=== PATIENT | female | born 1960 | race Caucasian/White ===

== ENCOUNTER 2019-05-23 09:01 | Outpatient (CLI) | payer MEDICARE, MEDICAID, SELFPAY | END 2019-05-23 09:02 | disposition home or self-care (01) | PROVIDERS: PCP Family Medicine; Visit Provider Audiologist | DX: H93.19 Tinnitus, unspecified ear (principal) | CPT/HCPCS: 92557; 92567 ==

== ENCOUNTER 2019-06-27 08:49 | Outpatient (RCR) | payer MEDICARE, MEDICAID, SELFPAY | END 2019-09-25 23:59 | disposition home or self-care (01) | LOC: CHSAUDIO 08:49 | PROVIDERS: PCP Family Medicine; Visit Provider Audiologist | DX: H93.19 Tinnitus, unspecified ear (principal) | CPT/HCPCS: V5160; V5261 ==

== ENCOUNTER 2020-04-11 10:21 | Outpatient (CLI) | payer MEDICARE, MEDICAID, SELFPAY ==
--- NOTE | ~2020-04-11 | DEXA_ITS ---
Bone Density Report Name: Gladis Palomo Age: 60 Sex: Female Ethnicity: White Date of : 1960 Indication: postmenopausal; screening for osteoporosis; parental hip fracture; rheumatoid arthritis; Referring Provider: Jenny, Wade Richmond Study: Bone densitometry was performed. Exam Date: April 11, 2020 Accession number: [id number] Bone Density: Region BMD T-score Z-score Classification AP Spine(L2, L3, L4) 0.883 -1.8 -0.5 Osteopenia Femoral Neck (Left) 0.686 -1.5 -0.3 Osteopenia Total Hip (Left) 0.840 -0.8 0.0 Normal Femoral Neck (Right) 0.691 -1.4 -0.2 Osteopenia Total Hip (Right) 0.815 -1.0 -0.2 Normal Femoral Neck Mean 0.688 -1.4 -0.3 Osteopenia Total Hip Mean 0.828 -0.9 -0.1 Normal World Health Organization criteria for BMD impression classify patients as: Normal (T-score at or above -1.0), Osteopenia (T-score between -1.0 and -2.5), or Osteoporosis (T-score at or below -2.5). 10-year Fracture Risk(1): Major Osteoporotic Fracture 16% Hip Fracture 1.2% Reported Risk Factors: [place] (), Neck BMD=0.686, BMI=38.1, parental fracture, smoking, rheumatoid arthritis (1) FRAX(R) Version 3.08. Fracture probability calculated for an untreated patient. Fracture probability may be lower if the patient has received treatment. Previous Exams: Region Exam Age BMD T-score BMD Change BMD Change Date g/cm2 vs Baseline vs Previous AP Spine (L2-L4) 04/11/2020 60 0.883 -1.8 -0.108 (-10.9% -0.108 (-10.9% 05/02/2015 55 0.991 -0.8 Total Hip(Left) 04/11/2020 60 0.840 -0.8 -0.044 (-5.0%) -0.044 (-5.0%) 05/02/2015 55 0.884 -0.5 *Denotes significance at 95% confidence level, LSC for AP Spine = 0.022 g/cm2, LSC for Total Hip = 0.027 g/cm2 # Denotes dissimilar scan types or analysis methods Clinical Information Provided by Patient: Parent has had a hip fracture Smokes Has rheumatoid arthritis Has used the following medications: Vitamin D Patient maximum height was 56 No regular weight bearing exercise Does not regularly consume dairy products Onset of menses at age 12 Number of children 1 Impression: The patient has low bone mass, based on the Total Spine T-score. The patient has risk factors, including: parental hip fracture, smoking. No significant bone loss was observed. Discussion: BONE DENSITY IS LOW AT ONE OR MORE SKELETAL SITES. This patient's lowest T-score is low at one or more skeletal sites. It meets the World Health Organiz
--- NOTE | ~2020-04-11 | CT_ITS ---
EXAMINATION: CT lung screening DATE: 04/11/2020 10:56 INDICATION: Lung cancer screening. History of tobacco dependence. TECHNIQUE: Computed tomography (CT) of the chest was performed without intravenous contrast. The dose -length product was 144.59 mGy-cm. Automated exposure control and iterative reconstruction technique were employed. COMPARISON: Chest dated 04/01/2015 FINDINGS: Heart size normal. No significant pleural or pericardial effusion. There is atherosclerosis . No evidence for aneurysm. No thoracic lymphadenopathy. There is a 1.5 cm left adrenal adenoma. Ther e is left upper lobe atelectasis/scarring medially. There is a 3.5 mm left upper lobe nodule, image 5 5. There is right middle lobe atelectasis/scarring. No endobronchial lesions. There is a 2 mm left lo wer lobe nodule, image 62. No pneumothorax. There is a superior endplate compression fracture of T11 and T2, likely chronic. IMPRESSION: 1. Lung-RADS category 2: Benign appearance or behavior. Continue annual screening with noncontrast lo w-dose chest CT in 12 months. Reviewed, dictated and finalized at location A. [facility]ING [employer]TER IMPRESSION: 1. Lung-RADS category 2: Benign appearance or behavior. Continue annual screeni ng with noncontrast low-dose chest CT in 12 months.
== END 2020-04-11 10:22 | disposition home or self-care (01) ==
LOC: CHSIMG 10:24
PROVIDERS: PCP Family Medicine; Visit Provider Family Medicine
DX: Z12.2 Encounter for screening for malignant neoplasm of respiratory organs (principal); Z87.891 Personal history of nicotine dependence; Z78.0 Asymptomatic menopausal state
CPT/HCPCS: 77080; G0297

== ENCOUNTER 2020-09-05 12:54 | Outpatient (CLI) | payer MEDICARE, MEDICAID, SELFPAY ==
--- NOTE | ~2020-09-05 | MM_ITS ---
EXAMINATION: MM screening [facility] BI w demetrice HISTORY: Screening mammogram TECHNIQUE: Craniocaudal and mediolateral oblique 3-D tomosynthesis images were obtained and synthetic 2-D images were generated. CAD analysis was submitted and interpreted. COMPARISON: 04/11/2019, 05/31/2017, 03/06/2015 BREAST PARENCHYMAL COMPOSITION: The breasts are almost entirely fatty. FINDINGS: A small mass in the subareolar aspect of the left breast demonstrates decrease in size, con sistent with a benign finding. There is no evidence of suspicious mass, calcification, or architectur al distortion to suggest malignancy in either breast. There has been no suspicious interval change. IMPRESSION: 1. No mammographic evidence of malignancy. 2. Recommend routine screening mammography in one year. BI-RADS Category 2: Benign finding(s). Reviewed, dictated and finalized at location A.
== END 2020-09-05 12:55 | disposition home or self-care (01) ==
LOC: CHSIMG 12:56
PROVIDERS: PCP Family Medicine; Visit Provider Family Medicine
DX: Z12.31 Encounter for screening mammogram for malignant neoplasm of breast (principal)
CPT/HCPCS: 77063; 77067

== ENCOUNTER → 2020-09-20 03:41 | Outpatient (CLI) | payer MEDICARE, MEDICAID, SELFPAY ==
[2020-09-20 19:46] LABS: SARS-CoV-2 RNA PCR Negative
== END ==
PROVIDERS: PCP Family Medicine; Visit Provider Internal Medicine Gastroenterology
DX: Z01.812 Encounter for preprocedural laboratory examination (principal); Z20.822 Contact with and (suspected) exposure to COVID-19
CPT/HCPCS: C9803; U0003; U0005

== ENCOUNTER 2020-09-23 01:32 | Day surgery (SDC) | payer MEDICARE, MEDICAID, SELFPAY ==
[2020-09-10 14:49] VITALS: BMI 28.8
[2020-09-23 09:01] VITALS: BP 123/75; PULSE 109; RESP 19; TEMP 35.5; O2SAT 97; BMI 28.5
[2020-09-23] MEDS: LACTATED RINGERS 1,000 ML 150 ML IV CONT (09:14)
--- NOTE | 2020-09-23 09:46 | WPDANESEPPF ---
Anes - Initial Pre Proc Eval Procedure: Operation Date: 09/23/20 10:15 Proposed Procedures p Esophagogastroduodenoscopy & Colonoscopy - Marvin Bolden MD Date/Time: 09/23/20 09:46 Surgeon: Marvin Bolden MD Pre Op Diagnosis: Weight loss, diarrhea Patient Data Age: 60 Gender: F Height: 5 ft 6 in Weight: 80.4 kg Last Vital Signs Temp 96 F L 09/23/20 09:01 Pulse 109 H 09/23/20 09:01 Resp 19 09/23/20 09:01 BP 123/75 09/23/20 09:01 Pulse Ox 97 09/23/20 09:01 Allergies Allergy/AdvReac Type Severity Reaction Status Date / Time cyclacillin Allergy Severe sick Verified 09/23/20 09:00 amoxicillin Allergy Intermediate Nausea and Verified 09/23/20 09:00 Vomiting NSAIDS (Non-Steroidal Allergy Intermediate Nausea and Verified 09/23/20 09:00 Anti-Inflamma Vomiting Tetracyclines Allergy Intermediate Nausea and Verified 09/23/20 09:00 Vomiting Home Medications Medication Instructions Recorded Confirmed Type metoprolol tartrate 25 mg tablet 25 mg PO QPM 07/10/19 09/23/20 History lovastatin 20 mg tablet 20 mg PO QPM 12/05/19 09/23/20 History quetiapine 400 mg tablet 400 mg PO QPM PRN 12/05/19 09/23/20 History venlafaxine 37.5 mg 37.5 mg PO DAILY 12/05/19 09/23/20 History capsule,extended release 24 hr cholecalciferol (vitamin D3) 2,000 unit PO DAILY 09/10/20 09/23/20 History [Vitamin D3] dexlansoprazole [Dexilant] 60 mg PO PRN PRN 09/10/20 09/23/20 History thiamine HCl (vitamin B1) [Vitamin 100 mg PO QPM 09/10/20 09/23/20 History B-1] zolpidem 5 - 10 mg PO HS PRN 09/10/20 09/23/20 History Patient hx anesthesia problems: none Family hx anesthesia problems: none PMFSH Past Medical History Medical History (Updated 12/05/19 @ 09:52 by Laura Cordova) Diarrhea GERD (gastroesophageal reflux disease) Lack of appetite Nausea Weight loss Social History Social History Years smoked: 44 Smoking status: Former smoker Tobacco type: cigarettes Alcohol intake: former Substance use: current Substance use type: marijuana Living arrangements: with family Spiritual care concerns: No Anes - Eval Final PreProcedure Day of Procedure 09/23/20 09:46 Patient weight: obese Heart: regular rate and rhythm Lungs: clear to auscultation Airway: Mallampati scale class II Neurological: alert and oriented Last oral intake: >/= 8 hours ASA classification: III Emergent: no Anesthetic plan: proceed Anesthesia type and monitoring: general GIVS and standard monitoring Informed Consent: The patient's anesthetic plan and its attendant risks and benefits were discussed with the patient/family/POA. Questions were solicited and answers provided to the satisfaction of the patient/family/POA.
--- NOTE | 2020-09-23 09:58 | PM.HPGS ---
History of Present Illness History of Present Illness Consent: Risks, benefits, and alternatives have been discussed and questions answered. Patient agrees to proceed with procedure. Chief complaint: Weight loss, diarrhea Narrative: Gladis Palomo is a 60 year old female with regurgitation, loose stools and nausea. Last colonoscopy 5 years ago. She also claims that has seen parasites in urine, stool and skin Review of Systems Constitutional: Constitutional: Denies headache(s) and Denies weakness Eyes: Eyes: Denies blurry vision ENT: Reports Normal hearing present, Denies headache(s) and Denies neck pain Cardiovascular: Cardiovascular: Denies chest pain and Denies dyspnea Respiratory: Respiratory: Denies dyspnea Gastrointestinal: Gastrointestinal: Reports no additional gastrointestinal complaints Genitourinary: Genitourinary: Denies dysuria Musculoskeletal: Musculoskeletal: Denies neck pain Integumentary/Breasts: Skin/Breast: Denies dry skin Neurologic: Reports Normal hearing present, Denies headache(s) and Denies weakness Psychiatric: Psychiatric: Denies anxiety Endocrine: Endocrine: Denies change in body appearance Hematologic/Lymphatic: Hematologic/Lymphatic: Denies easy bleeding Allergic/Immunologic: Allergic/Immunologic: Denies urticaria [facility] Past Medical History Medical History (Updated 12/05/19 @ 09:52 by Laura Cordova) Diarrhea GERD (gastroesophageal reflux disease) Lack of appetite Nausea Weight loss Social History Social History Years smoked: 44 Smoking status: Former smoker Tobacco type: cigarettes Alcohol intake: former Substance use: current Substance use type: marijuana Living arrangements: with family Spiritual care concerns: No Meds Home Medications and Allergies Home Medications Medication Instructions Recorded Confirmed Type metoprolol tartrate 25 mg tablet 25 mg PO QPM 07/10/19 09/23/20 History lovastatin 20 mg tablet 20 mg PO QPM 12/05/19 09/23/20 History quetiapine 400 mg tablet 400 mg PO QPM PRN 12/05/19 09/23/20 History venlafaxine 37.5 mg 37.5 mg PO DAILY 12/05/19 09/23/20 History capsule,extended release 24 hr cholecalciferol (vitamin D3) 2,000 unit PO DAILY 09/10/20 09/23/20 History [Vitamin D3] dexlansoprazole [Dexilant] 60 mg PO PRN PRN 09/10/20 09/23/20 History thiamine HCl (vitamin B1) [Vitamin 100 mg PO QPM 09/10/20 09/23/20 History B-1] zolpidem 5 - 10 mg PO HS PRN 09/10/20 09/23/20 History Allergies Allergy/AdvReac Type Severity Reaction Status Date / Time cyclacillin Allergy Severe sick Verified 09/23/20 09:00 amoxicillin Allergy Intermediate Nausea and Verified 09/23/20 09:00 Vomiting NSAIDS (Non-Steroidal Allergy Intermediate Nausea and Verified 09/23/20 09:00 Anti-Inflamma Vomiting Tetracyclines Allergy Intermediate Nausea and Verified 09/23/20 09:00 Vomiting Vital Signs Vital Signs - 24 hr 09/23/20 09:01 Temperature 96 F L Pulse Rate 109 H Respiratory Rate 19 Blood Pressure 123/75 Pulse Oximetry 97 Exam Const: General: comfortable and no acute distress HENMT: General nose exam: Normal nares present Eyes: General: appearance normal, both eyes and all related structures Neck: Neck: no JVD Resp: Auscultation: clear to auscultation bilaterally Cardio: Rate: regular rate Rhythm: regular rhythm GI: Inspection: non-distended GI Palp: Yes Soft to palpation Skin: General skin exam: normal color Neuro: General: gait normal Speech: normal speech Extrem: General: normal to inspection Psych: Mental Status: mental status grossly normal Assessment and Plan Assessment and plan (1) Nausea: Code(s): R11.0 - Nausea Status: Acute Assessment and Plan: egd with bx (2) GERD (gastroesophageal reflux disease): Qualifiers: Esophagitis presence: esophagitis presence not specified Quali
[2020-09-23] MEDS: BENZOCAINE (*SP) 60 ML SPRAY CAN (HURRICAINE) 1 SPRAY MUCOUS MEM (10:03)
--- NOTE | 2020-09-23 10:27 | SUR.OPER ---
EGD START 1004, END 1008 COLONOSCOPY START 1014, END 1025
[2020-09-23 10:30] VITALS: BP 104/71; PULSE 78; RESP 15; O2SAT 99
[2020-09-23 10:40] VITALS: BP 137/74; PULSE 91; RESP 19; O2SAT 100
[2020-09-23 10:50] VITALS: BP 110/78; PULSE 80; RESP 17; O2SAT 98
== END 2020-09-23 11:20 | disposition home or self-care (01) ==
PROVIDERS: PCP Family Medicine; Visit Provider Internal Medicine Gastroenterology
PROC: 0DJ08ZZ Inspection of Upper Intestinal Tract, Via Natural or Artificial Opening Endoscopic (ICD-10-PCS; CPT 43235; principal; 2020-09-23 10:15)
DX: Z12.11 Encounter for screening for malignant neoplasm of colon (principal); D12.2 Benign neoplasm of ascending colon; K57.30 Diverticulosis of large intestine without perforation or abscess without bleeding; K64.8 Other hemorrhoids; K29.50 Unspecified chronic gastritis without bleeding; K63.5 Polyp of colon; K21.00 Gastro-esophageal reflux disease with esophagitis, without bleeding; K52.89 Other specified noninfective gastroenteritis and colitis; R11.0 Nausea; R63.4 Abnormal weight loss; Z87.891 Personal history of nicotine dependence; F12.90 Cannabis use, unspecified, uncomplicated; E66.9 Obesity, unspecified; Z68.28 Body mass index [BMI] 28.0-28.9, adult
CPT/HCPCS: 45380; 45385; 43239; 88305; J2704; J7120

== ENCOUNTER 2021-04-29 13:00 | Outpatient (CLI) | payer OTHER, SELFPAY ==
--- NOTE | ~2021-04-29 | CT_ITS ---
EXAMINATION: CT lung screening EXAM DATE: 04/29/2021 13:18 INDICATION: Personal history of nicotine dependence. TECHNIQUE: Spiral low dose CT of the chest without contrast. Axial, coronal and sagittal images were reviewed. The dose-length product (DLP) for this examination was 119.14 mGy-cm. The exposure was t ailored according to patient size (auto mA exposure control), and iterative reconstruction (ASIR) was used as additional dose reduction technique. Comparison is made to prior examination from 04/11/2020 . FINDINGS: 3 mm right lower lobe and left upper lobe nodules unchanged. No new or suspicious pulmonar y nodules. Small amount of right middle lobe and upper lobe anteromedial atelectasis. Tracheobronchia l tree is patent. There is no mediastinal, hilar or axillary lymphadenopathy. Trace pericardial e ffusion, no pleural effusions. There is no pneumothorax. Heart normal in size. There is mild cor onary arterial calcification, arterial sclerosis. There is 1.5 cm left adrenal gland lesion with mac roscopic fat, consistent with myelolipoma. There is hepatic steatosis. There is thoracic spondylosi s without osteoblastic or osteolytic lesions identified. Several mild thoracic chronic compression fractures. IMPRESSION: Lung-RADS category 2, benign appearance or behavior (<1% chance of malignancy); recommend continued LDCT screening in 1 year. Reviewed, dictated and finalized at location A. ERCIAL [employer]ER
== END 2021-04-29 13:01 | disposition home or self-care (01) ==
LOC: CHSIMG 13:04
PROVIDERS: PCP Family Medicine; Visit Provider Family Medicine
DX: Z87.891 Personal history of nicotine dependence (principal)
CPT/HCPCS: 71271

== ENCOUNTER 2025-02-26 23:24 | Emergency (ER) | payer MEDICARE, MEDICAID, SELFPAY ==
--- NOTE | ~2025-02-26 | XR_ITS ---
Lumbar spine series Indication: Trauma, lower back pain Comparison: None Technique: 3 views lumbar spine Findings: 6 nonrib-bearing lumbar-type vertebral bodies. No acute fracture. No listhesis. Vertebral bodies normal height. Disc spaces maintained. No significant degenerative changes. SI joints congruent. Sacrum intact. Aortoiliac atherosclerotic disease. IMPRESSION: 1. No acute findings. Reviewed, dictated and finalized at location R. [facility] ASSISTANT IMPRESSION: 1. No acute findings.
[2025-02-26 23:24] VITALS: BP 139/96; PULSE 110; RESP 16; TEMP 36.5; O2SAT 100
--- OUTSIDE RECORDS SUMMARY | 2025-02-26 23:26 | XMS_ITS | Clinical Summary ---
Author Organization [facility] Address [address] [place] [address] Care Team Providers Care Client Service Representative Name Role Phone Jaun Negron MD Primary Care Provider Allergies Active Allergy Reactions Criticality Noted Date Comments Cyclizine Unknown 11/20/2015 Fenofibrate Unknown 10/03/2015 Penicillins Unknown 10/03/2015 Tetracycline Unknown 10/03/2015 Medications acetaminophen-co deine (TYLENOL #3) 300-30 MG tablet Take 1 tablet by mouth daily. 08/27/2024 Active Cholecalciferol 1.25 MG (80523 UT) Tab Take 1 tablet by mouth once a week. Active Multiple Vitamin (MULTIVITAMIN ADULT) Tab Take 1 tablet by mouth daily. Active folic acid (FOLVITE) 400 MCG tablet Take 1 tablet (400 mcg total) by mouth daily. Active Active Problems No known active problems Family History Relation Status Comments Father Alive Mother Social History Tobacco Use Types Packs/Day Years Used Date Smoking Tobacco: Every Day Cigarettes 0.3 55.8 Started: 1970 Smokeless Tobacco: Never Tobacco Cessation:Ready to Q uit: Not Asked; Counseling Given: Not Answered Alcohol Use Standard Drinks/Week Comments Not Currently 0 (1 standard drink = 0.6 oz pur e alcohol) Comments Unknown Sex and Gender Information Value Date Recorded Sex Assigned at Female 09/20/2024 9:18 AM CDT Legal Sex Female 8:29 PM CDT Gender Identity Not on file Sexual Orientation Not on file Last Filed Vital Signs Vital Sign Reading Time Taken Comments Blood Pressure 124/81 11/20/2015 4:52 PM CDT Pulse 85 11/20/2015 4:52 PM CDT Temperature - - Respiratory Rate 12 11/20/2008 10:28 AM CDT Oxygen Saturation - - Inhaled Oxygen Concentration - - Weight 55.8 kg (123 lb) 10/02/2024 2:11 PM CDT Height 167.6 cm (5' 6) 10/02/2024 2:11 PM CDT Body Mass Index 19.85 10/02/2024 2:11 PM CDT Plan of Treatment Health Maintenance Due Date Last Done Comments Cervical Cancer Screening Pa p Smear (Age 30 to 64) Every 3 Years 1960 Colorectal Cancer Screening Colonoscopy (10 Years) 1960 Annual Physical 1965 Hepatitis C 1980 DTaP, Tdap and Td Vaccines ( 1 - Tdap) 1981 Cervical Cancer Screening Pa p with HPV Testing (Age 30 to 64) Every 5 Years 1992 Cervical Cancer Screening wi th HPV 1992 Mammogram Screening 2002 Zoster Vaccines (2 of 2) 06/07/2018 04/12/2018 Pneumococcal Vaccine: 50+ Years (2 of 2 - PPSV23, PCV20, or PCV21) 01/08/2020 11/13/2019 COVID-19 Vaccine (3 - 2024-2 6 season) 2024 08/08/2020, 07/11/2020 Influenza Adult (#1) 2025 01/09/2020, 01/26/2019, 02/15/2017 RSV Immunization or 60+ Years (1 - 1-dose 75+ series) 2037 Hepatitis A Vaccines Aged Out No long er eligible based on patient's age to complete this topic Meningococcal B Vaccine Aged Out No l onger eligible based on patient's age to complete this topic Meningococcal Vaccine Aged Out No elpidio rory eligible based on patient's age to complete this topic RSV Immunizations Under 20 Months Aged Out No longer eligible b ased on patient's age to complete this topic Insurance MEDICAID [facility] MEDICARE Care Teams Client Service Representative Relationship Specialty Start Date End Date Jaun Negron MD [address] [place] [id number] PCP - General FAMILY PRACTICE 10/02/24
--- NOTE | 2025-02-26 23:35 | ED.BACK ---
HPI - Back Pain/Injury General Chief Complaint: Back Pain/Injury Stated Complaint: Lower Back Pain Time Seen by Provider: 02/26/25 23:35 Source: patient Mode of arrival: EMS Limitations: no limitations History of Present Illness HPI Narrative: Patient is a 64-year-old female with sciatica like changes of her left lower back and down the left leg for the past 3 weeks. She went to a different hospital the other day 2 weeks ago but no medications were given. She is still having lower back pain that and that radiates to the left lower extremity. No injuries. Patient does have known sciatica and history of spinal stenosis. No saddle anesthesia. No loss or retention of urine or stool. MD elicited complaint: back pain Pertinent past history: prior back pain Onset (ago): week(s) (Three) Timing: intermittent and progressively worsening Severity: moderate Pain scale (0-10): 7 Similar Symptoms Previously: Yes Quality: burning and sharp Location: lumbar spine Radiation: left leg below the knee Exacerbating factors: movement Relieving factors: immobilization Context: while lifting, turning/twisting, bending and unknown Associated symptoms: weakness (Bilateral lower extremity and difficulty walking due to the pain) Treatments prior to arrival: other medications (Patient had a small dose of prednisone at home but that did not help) Work related injury: No Related Data Home Medications ?Medication ?Instructions ?Recorded ?Confirmed ?Last Taken ?Type metoprolol tartrate 25 mg tablet 25 mg PO QPM 07/10/19 09/23/20 09/22/20 History lovastatin 20 mg tablet 20 mg PO QPM 12/05/19 09/23/20 09/22/20 History quetiapine 400 mg tablet (Seroquel) 400 mg PO QPM PRN Insomnia 12/05/19 09/23/20 09/22/20 History venlafaxine 37.5 mg 37.5 mg PO DAILY 12/05/19 09/23/20 09/22/20 History capsule,extended release 24 hr (Effexor XR) cholecalciferol (vitamin D3) 50 2,000 unit PO DAILY 09/10/20 09/23/20 09/22/20 History mcg (2,000 unit) tablet (Vitamin D3) dexlansoprazole 60 mg 60 mg PO PRN PRN Acid Reflux 09/10/20 09/23/20 09/22/20 History capsule,biphase delayed release (Dexilant) thiamine HCl (vitamin B1) 100 mg 100 mg PO QPM 09/10/20 09/23/20 09/22/20 History tablet (Vitamin B-1) zolpidem 10 mg tablet 5 - 10 mg PO HS PRN Insomnia 09/10/20 09/23/20 09/22/20 History Allergies Allergy/AdvReac Type Severity Reaction Status Date / Time cyclacillin AdvReac Severe sick Verified 02/26/25 23:34 amoxicillin AdvReac Intermediate Nausea and Verified 02/26/25 23:34 Vomiting NSAIDS (Non-Steroidal AdvReac Intermediate Nausea and Verified 02/26/25 23:34 Anti-Inflamma Vomiting Tetracyclines AdvReac Intermediate Nausea and Verified 09/23/20 10:07 Vomiting Review of Systems Review of Systems: All systems reviewed & are unremarkable except as noted in HPI and below Constitutional: Constitutional: Reports no additional constitutional complaints Eyes: Eyes: Reports no additional eye complaints ENT: Reports system reviewed and no additional complaints, except as documented Cardiovascular: Cardiovascular: Reports no additional cardiovascular complaints Respiratory: Respiratory: Reports no additional respiratory complaints Gastrointestinal: Gastrointestinal: Reports no additional gastrointestinal complaints Genitourinary: Genitourinary: Reports no additional female genitourinary complaints Musculoskeletal: Musculoskeletal: Reports no additional musculoskeletal complaints Integumentary/Breasts: Skin/Breast: Reports system reviewed and no additional complaints, except as docu Neurologic: Reports system reviewed and no additional complaints, except as documented Psychiatric: Psychiatric: Reports no additional psychiatric complaints Endocrine: Endocrine: Reports no additional endocrine complaints Hematologic/Lymphatic: Hematologic/Lymphatic: Reports no additional hematologic/lymphatic complaints Allergic/Immunologic: Allergic/Immunologic: Reports no additional allergic/immunologic complaints PMFSH Past Medical History Medical History Weight loss Nausea GERD (gastroesophageal reflux disease) Diarrhea Lack of appetite Social History Social History Years smoked: 44 Tobacco type: cigarettes Alcohol intake: former Substance use: current Substance use type: marijuana Living arrangements: with family Spiritual care concerns: No Exam Const: General: healthy appearing Nutritional Appearance: well nourished Orientation/consciousness: patient oriented x3 HENMT: Head: normal to inspection Ears: external ears normal Face/Nose/Sinus: Normal external nose present Eyes: Conjunctivae: conjunctivae normal Pupils: Equal, round and reactive pupils present EOM: EOMs intact bilaterally Neck: Neck: normal visual inspection Chest: Chest palpation & inspection: normal inspection of the chest Resp: Effort & Inspection: normal respiratory effort and not labored Auscultation: clear to auscultation bilaterally and no crackles Cardio: Rate: regular rate Rhythm: regular rhythm Heart sounds: no murmurs GI: Inspection: non-distended Auscultation: normal bowel sounds : General: Yes bladder normal to palpation Back/Spine/Pelvis: Back: no CVA tenderness Skin: General skin exam: normal color Rashes: no rashes Wounds: no wounds Neuro: General: patient oriented x3, moves all extremities and no meningeal signs Cranial nerves: Yes Nystagmus not present Speech: normal speech Gait exam (Neuro): gait abnormal (Difficulty walking due to left lower back pain which shoots left leg) Extrem: General: normal to inspection, no clubbing, cyanosis or edema and no pedal edema Psych: Mental Status: mental status grossly normal Affect: normal affect Attitude: cooperative Course Vital Signs Vital signs: Vital Signs Temperature 36.5 C 02/26/25 23:24 Pulse Rate 110 H 02/26/25 23:24 Respiratory Rate 16 02/26/25 23:24 Blood Pressure 139/96 H 02/26/25 23:24 Pulse Oximetry 100 02/26/25 23:24 Oxygen Delivery Room Air 02/26/25 23:24 Temperature 36.5 C 02/26/25 23:24 Pulse Rate 110 H 02/26/25 23:24 Respiratory Rate 16 02/26/25 23:24 Blood Pressure 139/96 H 02/26/25 23:24 Pulse Oximetry 100 02/26/25 23:24 Oxygen Delivery Room Air 02/26/25 23:24 MDM - Back Pain/Injury MDM Narrative Medical decision making narrative: Patient is a 64-year-old female with lower back pain and left lower extremity shooting pains for the past 3 weeks. We will do a combo of a steroid, pain relief and muscle relaxer. X-ray. Imaging Data Attestation: I personally reviewed and interpreted this imaging study as follows: Radiologist's impression: Lumbar spine x-ray is negative for acute findings Discharge Plan Discharge Clinical Impression: Sciatica Qualifiers: Laterality: left Qualified Code(s): M54.32 - Sciatica, left side Patient Disposition: Home Condition: Stable Instructions: Sciatica (ED) Patient Language: Danish Prescriptions: New prednisone 20 mg tablet 40 mg PO DAILY 3 Days Qty: 6 0RF diazepam [Valium] 5 mg tablet 5 mg PO BID PRN (Reason: muscle spasm) Qty: 20 0RF hydrocodone-acetaminophen 5-325 mg tablet 1 tablet PO Q8H PRN (Reason: pain) Qty: 20 0RF No Action metoprolol tartrate 25 mg tablet 25 mg PO QPM lovastatin 20 mg tablet 20 mg PO QPM quetiapine [Seroquel] 400 mg tablet 400 mg PO QPM PRN (Reason: Insomnia) Rx Instructions: TAKES 200 MG WITH SUPPER THAN ANOTHER 200MG AT HS IF NEEDED venlafaxine [Effexor XR] 37.5 mg capsule,extended release 24hr 37.5 mg PO DAILY thiamine HCl (vitamin B1) [Vitamin B-1] 100 mg Tablet 100 mg PO QPM zolpidem 10 mg tablet 5 - 10 mg PO HS PRN (Reason: Insomnia) cholecalciferol (vitamin D3) [Vitamin D3] 50 mcg (2,000 unit) Tablet 2,000 unit PO DAILY Dexilant 60 mg capsule,biphase delayed releas 60 mg PO PRN PRN (Reason: Acid Reflux) budesonide 3 mg capsule,delayed,extend.release 6 mg PO DAILY 30 Days Qty: 60 1RF Rx Instructions: take as 6mg (2 pills daily) for 6 weeks, then decrease to 3 mg daily for 2 weeks then stop Follow-up/Referrals: Jamil,MD Jaun [Primary Care Provider, Family Practice] Time of Disposition: 00:26
[2025-02-26] MEDS: HYDROcodone/acetaminophen (*CRX) 5-325 MG TABLET 1 TAB PO (23:48)
[2025-02-26] MEDS: diazePAM INJ (*CRX) 10 MG/2 ML SYRINGE 5 MG IV PUSH (23:49)
[2025-02-27 00:34] VITALS: BP 128/80; PULSE 111; RESP 16; TEMP 36.8; O2SAT 95
== END 2025-02-27 00:49 | disposition home or self-care (01) ==
PROVIDERS: Emergency Provider Emergency Medicine; PCP Family Medicine
DX: M54.32 Sciatica, left side (principal); Z87.891 Personal history of nicotine dependence
CPT/HCPCS: 72100; 96374; 96375; 99284; A9270; J2919; J3360

== ENCOUNTER 2025-03-11 22:55 | Emergency (ER) | payer MEDICARE, MEDICAID, SELFPAY ==
[2025-03-11 22:58] VITALS: BP 168/101; PULSE 120; RESP 18; TEMP 36.1; O2SAT 98
--- NOTE | 2025-03-11 23:05 | ED.BACK ---
HPI - Back Pain/Injury General Chief Complaint: Back Pain/Injury Stated Complaint: sciatica prob Time Seen by Provider: 03/11/25 23:01 Source: patient Mode of arrival: ambulatory Limitations: no limitations History of Present Illness HPI Narrative: 65-year-old with the complaints of low back pain mostly on the left started see weeks ago he patient states history was to 4 days ago for the same was given hydrocodone, Valium, steroid to which she finished this afternoon and now having severe pain. Patient states that she has an appointment to see a primary doctor tomorrow. She denies any bladder or bowel incontinence. MD elicited complaint: back pain Pertinent past history: prior back pain Onset (ago): week(s) Timing: constant Severity: moderate Similar Symptoms Previously: Yes Quality: aching Location: lumbar spine Exacerbating factors: none Relieving factors: none Associated symptoms: denies other symptoms Related Data Home Medications ?Medication ?Instructions ?Recorded ?Confirmed ?Last Taken ?Type metoprolol tartrate 25 mg tablet 25 mg PO QPM 07/10/19 03/11/25 09/22/20 History cholecalciferol (vitamin D3) 50 2,000 unit PO DAILY 09/10/20 03/11/25 09/22/20 History mcg (2,000 unit) tablet (Vitamin D3) Allergies Allergy/AdvReac Type Severity Reaction Status Date / Time cyclacillin AdvReac Severe sick Verified 03/11/25 23:00 amoxicillin AdvReac Intermediate Nausea and Verified 03/11/25 23:00 Vomiting NSAIDS (Non-Steroidal AdvReac Intermediate Nausea and Verified 03/11/25 23:00 Anti-Inflamma Vomiting Tetracyclines AdvReac Intermediate Nausea and Verified 03/11/25 23:00 Vomiting Review of Systems Review of Systems: All systems reviewed & are unremarkable except as noted in HPI and below Constitutional: Constitutional: Reports no additional constitutional complaints Eyes: Eyes: Reports no additional eye complaints ENT: Reports system reviewed and no additional complaints, except as documented Cardiovascular: Cardiovascular: Reports no additional cardiovascular complaints Respiratory: Respiratory: Reports no additional respiratory complaints Gastrointestinal: Gastrointestinal: Reports no additional gastrointestinal complaints Musculoskeletal: Musculoskeletal: Reports as per HPI [facility] Past Medical History Medical History Weight loss Nausea GERD (gastroesophageal reflux disease) Diarrhea Lack of appetite Social History Social History Years smoked: 44 Smoking status: Former smoker Tobacco type: cigarettes Alcohol intake: former Substance use: current Substance use type: marijuana Living arrangements: with family Spiritual care concerns: No Exam Narrative: GENERAL: Well-appearing, well-nourished, and in no acute distress. HEAD: Normocephalic, atraumatic. EYES: PERRLA and EOMI. ENT: Nares clear, no rhinorrhea or epistaxis. Mucous membranes moist. NECK: Supple. CHEST: Clear to auscultation. No respiratory distress. HEART: Regular rate and rhythm. No murmur heard. EXTREMITIES: Normal range of motion. No edema. SKIN: Warm, dry, no rash. NEURO: No focal deficits. Alert and oriented x3. PSYCH: Normal mood and affect. Course Course Emergency Course: I did review her chart from her previous visit. Including the x-ray. I did review her prescription record , she had 28tabs of Tylenol # 3 on 02/27 and 20 tabs of hydrocodone. I informed her that I would not be to refill her medication as she is getting medication from a primary doctor as well. Advised her to follow-up with her primary doctor as scheduled.Pt is fine going home. Vital Signs Vital signs: Vital Signs Temperature 36.1 C L 03/11/25 22:58 Pulse Rate 120 H 03/11/25 22:58 Respiratory Rate 18 03/11/25 22:58 Blood Pressure 168/101 H 03/11/25 22:58 Pulse Oximetry 98 03/11/25 22:58 Oxygen Delivery Room Air 03/11/25 22:58 Temperature 36.1 C L 03/11/25 22:58 Pulse Rate 120 H 03/11/25 22:58 Respiratory Rate 18 03/11/25 22:58 Blood Pressure 168/101 H 03/11/25 22:58 Pulse Oximetry 98 03/11/25 22:58 Oxygen Delivery Room Air 03/11/25 22:58 Discharge Plan Discharge Clinical Impression: Low back pain Qualifiers: Chronicity: chronic Back pain laterality: left Sciatica presence: with sciatica Sciatica laterality: sciatica of left side Qualified Code(s): M54.42 - Lumbago with sciatica, left side Patient Disposition: Home Condition: Stable Instructions: Acute Low Back Pain (ED) Patient Language: Irish Prescriptions: New hydrocodone-acetaminophen 5-325 mg tablet 1 tablet PO Q8H PRN (Reason: pain) Qty: 7 0RF No Action metoprolol tartrate 25 mg tablet 25 mg PO QPM cholecalciferol (vitamin D3) [Vitamin D3] 50 mcg (2,000 unit) Tablet 2,000 unit PO DAILY Follow-up/Referrals: Jamil,MD Jaun [Primary Care Provider, Family Practice] Time of Disposition: 23:21
[2025-03-11] MEDS: KETOROLAC 30 MG/ML VIAL (*BKC) IM (23:14)
[2025-03-11] MEDS: HYDROcodone/acetaminophen (*CRX) 5-325 MG TABLET 1 TAB PO (23:36)
[2025-03-11 23:44] VITALS: BP 159/91; PULSE 106; RESP 18; TEMP 36.3; O2SAT 95
[2025-03-12 00:05] VITALS: BP 161/91; PULSE 102; RESP 18; TEMP 36.5; O2SAT 97
== END 2025-03-12 00:05 | disposition home or self-care (01) ==
PROVIDERS: Emergency Provider Family Medicine; PCP Family Medicine
DX: M54.42 Lumbago with sciatica, left side (principal); Z79.891 Long term (current) use of opiate analgesic; Z87.891 Personal history of nicotine dependence
CPT/HCPCS: 96372; 99283; A9270; J1885

== ENCOUNTER 2025-03-14 16:17 | Outpatient (RCR) | payer MEDICARE, MEDICAID, SELFPAY ==
--- NOTE | 2025-03-14 17:21 | OPREHPOC ---
Outpatient Therapy Plan of Care This is a Multidisciplinary Plan of Care that may contain components documented by all disciplines (PT, OT, and ST.) PT Problem 1 PT Problem #1 Knowledge Deficit PT Goal 1 Goal / Goal Update The patient will be independent in a home exercise program. 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 Target Visit 10 PT Problem 3 PT Problem #3 Impaired Functional Mobility PT Goal 1 Goal / Goal Update The patient will demonstrate 40% or less self perceived disability per the Back Index questionnaire. The patient will be able to tolerate a 6 MWT without increased left LE or low back pain. 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 Target Visit 10 PT Problem 4 PT Problem #4 Impaired Range of Motion PT Goal 1 Goal / Goal Update The patient will improve lumbar flexion AROM to 40 degrees without pain elicited. Target Visit 10 PT Problem 5 PT Problem #5 Impaired Strength PT Goal 1 Goal / Goal Update The patient will demonstrate 5/5 left hip flexion strength. The patient will demonstrate at least 4/5 upper and lower abdominal strength as well as lumbar extension to support the spine for lifting light household items. Target Visit 10
--- NOTE | 2025-03-14 17:21 | PTOPEVAL1 ---
Assessment and note entered by Radha Sánchez, PT Evaluation Information Assessment Status Evaluation ICD-10 Condition Codes (PT) Radiculopathy, lumbar region M54.16 Onset 02/05/25 Subjective Information Gladis Palomo reports she has been having left sided sciatica that started around 02/05/25. She is unsure what started the pain. She denies starting any new activity. She has done some research and feels it may be from her spinal stenosis and herniated discs. She has pain that starts in the middle of her lower back and goes into her left buttock and inner thigh. She is unable to find a comfortable position and is having trouble sleeping. She does not work and is unable to shower more frequently than every 3 days due to pain. She is able to perform toileting but struggles with all other daily activities. She has been using hydrocodone and Tylenol 3 for pain relief. She reports she is out of hydrocodone though and can not take Tylenol anymore due to stomach issues. Pt has been using CBD cream and alcohol for pain relief now as well. Reported Pain Level Pain Score 10: Self Report Assessment PT Clinical Summary Gladis Palomo presents with lower back pain with radiation to her left buttock and inner thigh. 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 She has poor tolerance to prone and supine positions. She objectively demonstrates general restlessness, decreased weight bearing on her left LE, decreased and painful lumbar AROM, decreased core and left hip strength, decreased bilateral hamstring flexibility, and positive special tests indicating lumbar nerve root compression. She will benefit from skilled PT to address these limitations. Plan of Care Interventions Electrical Stimulation,Hot Pack/Cold Pack,Manual Therapy,Mechanical Traction,Neuro Re-education, Patient/Caregiver Education,Therapeutic Activities ,Therapeutic Exercise,Self-Care/Home Management PT Services Indicated Yes Treatment Frequency and 2 times a week for 10 visits Duration These treatments will address the objective and functional deficits as defined above. The patient will be advanced safely and appropriately in order for the patient to progress towards his/her prior level of function. Additional exercises will be introduced and as well as a comprehensive home exercise program upon discharge, if needed, ?to ensure carryover of functional gains achieved in the clinic. This treatment plan has been reviewed and agreement upon by the patient.
--- NOTE | 2025-03-20 07:39 | PCPTNOTE ---
Patient called & cancelled scheduled appointment this date due to having so much pain she can not sit or drive. She plans to call her doctor. -Radha Sánchez, PT
--- NOTE | 2025-05-07 15:13 | PTOPDC ---
Assessment and note entered by Radha Sánchez, PT Evaluation Information Assessment Status Discharge - Pt Not Present ICD-10 Condition Codes (PT) Radiculopathy, lumbar region M54.16 Onset 02/05/25 Subjective Information Pt not present, no subjective info attained. Assessment PT Clinical Summary Pt only attended 3 skilled PT visits for low back pain and was last seen on 03/19/25. She has not returned or called and will be discharged. Plan of Care PT Services Indicated Yes
== END 2025-03-19 20:00 | disposition home or self-care (01) ==
LOC: CHSPT 16:17
PROVIDERS: PCP Family Medicine; Visit Provider Family Medicine
DX: M54.50 Low back pain, unspecified (principal)
CPT/HCPCS: 97014; 97110; 97162; G0283